=== PATIENT | female | born 1990 | race Caucasian/White ===

== ENCOUNTER 2021-12-06 00:59 | Emergency (ER) | payer SELFPAY ==
[~2021-12-06] VITALS: Ht 152.4 cm; Wt 84.0 kg
[2021-12-06] MEDS ORDERED: LIDOCAINE/EPI/TETRACAINE TOPICAL GEL 3 ML. TP ONE ×2 (01:20→01:30)
[2021-12-06] MEDS ORDERED: CEPH500C PO (01:25)
--- NOTE | 2021-12-06 01:25 | PHYS DOC ---
Past History Past Surgical History: No Surgical History Adult General Chief Complaint Chief Complaint: LACERATION/AVULSION HPI HPI Patient is a 31-year-old female, up-to-date on tetanus who presents with left second digit laceration that happened just before coming in with a brand-new [employer]- [employer] knife. States she was working and trying to strip some wire when it slipped and stabbed her in the finger. Denies other injuries. Review of Systems Review of Systems Review of systems otherwise unremarkable except noted in HPI Physical Exam Physical Exam Constitutional: Well developed, well nourished, no acute distress, non-toxic appearance. [] HENT: Normocephalic, atraumatic, Skin: Warm, dry, no erythema, no rash. [] Extremities: Has a 1 cm linear superficial laceration on the lateral aspect the proximal second digit in between the PIP second MCP, neurovascular exam intact, bleeding controlled Neurologic: Alert and oriented X 3, no focal deficits noted. [] Psychologic: Affect normal, judgement normal, mood normal. [] EKG EKG [] Radiology/Procedures Radiology/Procedures [] Heart Score C/O Chest Pain: N/A Risk Factors: Risk Factors: DM, Current or recent (<one month) smoker, HTN, HLP, family history of CAD, obesity. Risk Scores: Risk Factors: DM, Current or recent (<one month) smoker, HTN, HLP, family history of CAD, obesity. Course & Med Decision Making Course & Med Decision Making Patient is a 31-year-old female who presents with finger laceration Vital signs not concerning. Physical exam noted above. Cleaned wound extensively. LET placed for anesthesia. Dermabond placed. Bandaged. Discussed wound management at home. Given wound care materials for home. Started on antibiotics. Advised to follow-up with primary care physician in the morning to update on ED visit Gave return precautions to the ED. Patient grateful, verbalized understanding and agreed with plan of discharge. Cyruson Disclaimer Jeronimo Disclaimer This electronic medical record was generated, in whole or in part, using a voice recognition dictation system. Departure Departure: Impression: Primary Impression: Finger laceration Disposition: HOME / SELF CARE / HOMELESS Condition: GOOD Referrals: PCP,NO (PCP) YENNI DALTON Patient Instructions: Laceration Care, Adult, Tissue Adhesive Wound Care Additional Instructions: Thanks for coming into the emergency department tonight and allowing us to take care of you. Please read the attached information carefully to go back over things we discussed. As we discussed do not submerge your wound for the next 24 hours. After that, replace bandage daily and wash very lightly with warm soapy water. Please take antibiotics as prescribed. You can use Tylenol ibuprofen and ice as needed. Please follow-up with your primary care physician to update and set up a follow-up appointment for wound reevaluation in the next week or 2. Please come back with new or concerning symptoms as we discussed. Scripts Cephalexin (KEFLEX) 500 Mg Capsule 1 CAP PO TID for wound for 3 Days, #9 CAP Prov: CHANTAL DAVE MD 12/06/21 CHANTAL DAVE MD Dec 06, 2021 01:25
[2021-12-06] MEDS ORDERED: CEPHALEXIN 250 MG CAPSULE PO ONE (01:30)
[2021-12-06] MEDS ORDERED: IBUPROFEN 600 MG TABLET. PO ONE (01:30)
[2021-12-06] MEDS ORDERED: ACETAMINOPHEN 500 MG TABLET PO ONE (01:30)
[2021-12-06 02:15] VITALS: BP 146/102
== END 2021-12-06 02:18 | disposition home or self-care (01) ==
LOC: ER 00:59
DX: S61.211A Laceration without foreign body of left index finger without damage to nail, initial encounter (principal); W26.0XXA Contact with knife, initial encounter; Y93.89 Activity, other specified; Y92.89 Other specified places as the place of occurrence of the external cause; Y99.8 Other external cause status
CPT/HCPCS: 12001; 99284